=== PATIENT | male | born 1960 | race African-American/Black ===

== ENCOUNTER 2020-10-26 16:02 | Emergency (ER) | payer MEDICAID ==
[~2020-10-26] VITALS: Ht 182.9 cm; Wt 181.0 kg
[2020-10-26 17:02] LABS: BASOPHILS % 0.9 % (0.0-2.0); EOSINOPHILS % 1.5 % (0.0-5.0); HEMOGLOBIN. 13.5 g/dL (14.0-18.0); LYMPHOCYTES % 29.3 % (20.0-50.0); MEAN CORPUSCULAR HEMOGLOBIN 31.9 pg (28.0-32.0); MEAN CORPUSCULAR VOLUME 92.5 fL (80.0-94.0); MEAN PLATELET VOLUME 7.4 fl (7.4-10.4); MONOCYTES % 9.6 % (2.0-8.0); NEUTROPHILS % 58.7 % (40.0-76.0); PLATELET 397 x1000/uL (130-400); RED BLOOD CELL COUNT 4.22 mill/uL (4.7-6.1); RED CELL DISTRIBUTION WIDTH 13.4 % (11.6-14.6)
[2020-10-26 17:06] LABS: CHLORIDE 108 mEq/L (98-107)
[2020-10-26] MEDS ORDERED: HYDRALAZINE 20MG/ML VIAL IV ONE ×3 (17:15→21:15)
[2020-10-26] MEDS ORDERED: ACETAMINOPHEN 325MG TABLET PO ONE (22:15)
[2020-10-26] MEDS ORDERED: AMOXICILLIN 500 MG CAPSULE PO ONE (22:15)
[2020-10-27 07:10] VITALS: BP 131/75
== END 2020-10-27 07:19 | disposition left against medical advice (07) ==
LOC: ER 17:15 → CANBEDREQ 10-27 08:06
DX: I16.1 Hypertensive emergency (principal); H66.91 Otitis media, unspecified, right ear; E66.01 Morbid (severe) obesity due to excess calories; Z68.43 Body mass index [BMI] 50.0-59.9, adult; R26.2 Difficulty in walking, not elsewhere classified
CPT/HCPCS: 36415; 70450; 71045; 80053; 83605; 83880; 84484; 85025; 93005; 96374; 96376; 99285; J0360; Z7610